=== PATIENT | male | born 1950 | race Caucasian/White ===

== ENCOUNTER 2019-01-03 13:14 | Day surgery (SDC) | payer BC ==
[~2019-01-03] VITALS: Ht 172.7 cm; Wt 79.8 kg
[2019-01-03] VITALS (9 sets, daily range): BP systolic 112–135; BP diastolic 77–90; PULSE 60–79; RESP 12–23; Ht 172.7 cm; Wt 79.8 kg
[2019-01-03] MEDS ORDERED: METF-849 PO (14:50)
[2019-01-03] MEDS ORDERED: ASPI-817 PO (14:50)
[2019-01-03] MEDS ORDERED: MIDAZOLAM 1 MG/ML 2 ML INJ ONE (15:07)
[2019-01-03] MEDS ORDERED: HEPARIN 1000 UNITS/ML 10 ML INJ ONE (15:07)
[2019-01-03] MEDS ORDERED: IODIXANOL LOCM 100 ML BTL ONE (15:07)
[2019-01-03] MEDS ORDERED: LIDOCAINE 1% (MDV) 20 ML INJ ONE (15:07)
[2019-01-03] MEDS ORDERED: FENTAnyl 50 MCG/ML VIAL ONE (15:07)
[2019-01-03] MEDS ORDERED: VERAPAMIL 5 MG INJ ONE (15:08)
[2019-01-03] MEDS ORDERED: NITROGLYCERIN (IC) 100 MCG/ML INJ ONE (15:08)
--- NOTE | 2019-01-03 16:13 | OPR ---
Date/Time of Note Date/Time of Note DATE: 01/03/19 TIME: 16:10 Operative Report Procedure Date: Jan 03, 2019 Preoperative Diagnosis Chest pain Postoperative Diagnosis Non-obstructive coronary atherosclerosis Operation/Procedure Performed left heart catheterization Surgeon see signature line Environmental Assistant none Anesthesia Type: moderate sedation Estimated Blood Loss: none Transfusion none Specimen none Grafts/Implants none Complications none Pt Condition Post Procedure: stable Disposition: home Procedure Description DESCRIPTION OF PROCEDURE: The patient placed on nuclear monitoring technician, pulse oximetry and supplemental oxygen as necessary. The right groin [] was prepped and draped in a sterile fashion and infiltrated with 1% lidocaine. Via the Seldinger technique, the right femoral artery was accessed. A 6-Danish sheath was inserted and through this the right coronary catheter and left coronary catheter and pigtail were advanced into the right coronary artery and left coronary artery and the left ventricle. Placement confirmed by fluoroscopy and hemodynamics. CATHETERIZATION FINDINGS: 1. Left main: No significant disease. 2. LAD: Large caliber vessel with proximal calcification but no flow limiting disease 3. Circumflex: Medium caliber vessel with no significant disease. 4. Obtuse marginal: Medium caliber vessel with no significant disease. 5. RCA: Large dominant vessel with no significant disease FINAL RESULTS: Calcified vessel with non-obstructive coronary atherosclerosis RECOMMENDATIONS: Aggressive medical management Discharge home AVRIL NAYLOR Jan 03, 2019 16:13
[2019-01-03] MEDS ORDERED: SOD CHLORIDE 0.9% 1,000 ML IV SCH (16:15)
--- NOTE | 2019-01-03 17:22 | RADRPT ---
Vent Rate: 64 bpm RR Interval: 944 msec RI Interval: 183 msec QRS Duration: 99 msec QT Interval: 406 msec QTC Interval: 418 msec P-R-T [place]: 45 - -33 - 53 degrees Sinus rhythm...normal P axis, V-rate 50- 99 Left axis deviation...QRS axis (-30,-90) Electronically Signed By: Isael Tipton
== END 2019-01-03 18:12 | disposition home or self-care (01) ==
LOC: SDS 13:14
PROVIDERS: ATTEND Internal Medicine
DX: I25.10 Atherosclerotic heart disease of native coronary artery without angina pectoris (principal); I10 Essential (primary) hypertension; E11.9 Type 2 diabetes mellitus without complications; Z79.82 Long term (current) use of aspirin; Z79.84 Long term (current) use of oral hypoglycemic drugs
CPT/HCPCS: 80048; 82962; 85025; 85610; 93005; 93454; C1887; J1644; J2250; J3010; Q9967; Z7610